=== PATIENT | female | born 1975 | race Caucasian/White ===

== ENCOUNTER 2020-07-23 07:04 | Day surgery (SDC) | payer BC ==
[~2020-07-23 07:04] MED LIST: Lactated Ringers 1,000 ML IV SCH
[2020-07-23] MEDS ORDERED: Sodium Chloride 0.9% 20 ML ONE (07:08)
[2020-07-23] MEDS ORDERED: ceFAZolin 1 GM Vial ONE (07:08)
[2020-07-23] MEDS ORDERED: Midazolam 1 MG/ML 2 ML SDV ONE (07:09)
[2020-07-23] MEDS ORDERED: Propofol 200 MG/20 ML SDV ONE (07:09)
[2020-07-23] MEDS ORDERED: fentaNYL 100 MCG/2 ML SDV ONE (07:09)
[2020-07-23] MEDS ORDERED: Ondansetron 4 MG/2 ML SDV ONE (07:09)
[2020-07-23] MEDS ORDERED: ceFAZolin 2 GM in Premix Bag 1 BAG IV SCH (08:00)
[2020-07-23] MEDS ORDERED: Scopolamine 1.5 MG Transdermal Patch TRDERM PRN (08:12)
[2020-07-23] MEDS ORDERED: Scopolamine 1.5 MG Transdermal Patch ONE (08:14)
[2020-07-23] MEDS ORDERED: Bupivacaine 25%/EPINEPHrine/PF 30 ML ONE (08:15)
[2020-07-23] MEDS ORDERED: Dexamethasone 4 MG/ML 5 ML MDV ONE (08:28)
[2020-07-23] MEDS ORDERED: fentaNYL 100 MCG/2 ML SDV IVPUSH PRN (08:46)
[2020-07-23] MEDS ORDERED: ePHEDrine 50 MG/ML SDV ONE (08:48)
[2020-07-23] MEDS ORDERED: Glycopyrrolate 0.2 MG/ML SDV ONE (08:50)
--- NOTE | 2020-07-23 08:57 | PCM.PREANE ---
Preanesthetic Assessment - Anesthesia/Transfusion/Family Hx Anesthesia History: Prior Anesthesia Reaction (PONV) Family History of Anesthesia Reaction: No Transfusion History: No Prior Transfusion(s) Intubation History: Unknown - Review of Systems General: No Symptoms Pulmonary: No Symptoms Cardiovascular: No Symptoms Gastrointestinal: No Symptoms Neurological: No Symptoms Other: Reports: None - Physical Assessment NPO Status Date: 07/22/20 NPO Status Time: 22:00 Vital Signs: Last Vital Signs Temp 97.2 F 07/23/20 08:34 Pulse 72 07/23/20 08:34 Resp 16 07/23/20 08:34 BP 134/94 H 07/23/20 08:34 Pulse Ox 99 07/23/20 08:34 Height: 5 ft 5 in Weight: 65.771 kg ASA Class: 1 Mental Status: Alert & Oriented x3 Airway Class: Mallampati = 2 Dentition: Reports: Normal Dentition Thyro-Mental Finger Breadths: 2 Mouth Opening Finger Breadths: 2 ROM/Head Extension: Full Lungs: Clear to Auscultation, Normal Respiratory Effort Cardiovascular: Regular Rate, Regular Rhythm - Lab Values: Laboratory Last Values Urine HCG, Qual NEGATIVE (NEGATIVE) 07/23/20 07:07 SARS-CoV-2 RNA (LYNDA) NEGATIVE (NEGATIVE) 07/23/20 07:07 - Allergies Allergies/Adverse Reactions: Allergies Allergy/AdvReac Type Severity Reaction Status Date / Time No Known Allergies Allergy Verified 07/23/20 08:32 - Acknowledgements Anesthesia Type Planned: General Anesthesia Pt an Appropriate Candidate for the Planned Anesthesia: Yes Alternatives and Risks of Anesthesia Discussed w Pt/Guardian: Yes Pt/Guardian Understands and Agrees with Anesthesia Plan: Yes PreAnesthesia Questionnaire HEENT History: Reports: None Cardiovascular History: Reports: None Respiratory History: Reports: None Gastrointestinal History: Reports: None Genitourinary History: Reports: None EXHAUST EMISSIONS INSPECTOR History: Reports: Musculoskeletal History: Reports: None Neurological History: Reports: None Psychiatric History: Reports: None Endocrine/Metabolic History: Reports: None Hematologic History: Reports: None Immunologic History: Reports: None Oncologic (Cancer) History: Reports: None Dermatologic History: Reports: None - Infectious Disease History Infectious Disease History: Reports: None - Past Surgical History Head Surgeries/Procedures: Reports: None HEENT Surgical History: Reports: None Cardiovascular Surgical History: Reports: None Respiratory Surgical History: Reports: None GI Surgical History: Reports: None Female Surgical History: Reports: None Endocrine Surgical History: Reports: None Neurological Surgical History: Reports: None Musculoskeletal Surgical History: Reports: Arthroscopic Knee Other Musculoskeletal Surgeries/Procedures:: left knee surgery x2 Oncologic Surgical History: Reports: None Dermatological Surgical History: Reports: None - SUBSTANCE USE Tobacco Use Status *Q: Never Tobacco User - HOME MEDS Home Medications: Home Meds . [No Known Home Meds] 07/19/20 [History] - CURRENT (IN HOUSE) MEDS Current Meds: Current Medications Fentanyl (Sublimaze) 50 mcg IVPUSH Q5M PRN PRN Reason: Pain (severe 7-10) Stop: 07/24/20 08:47 Lactated Ringer's (Ringers, Lactated) 1,000 mls @ 100 mls/hr IV ASDIRECTED EL Last Admin: 07/23/20 08:20 Dose: 100 mls/hr Documented by: Cefazolin Sodium/Dextrose 2 gm (/ Premix) 50 mls @ 100 mls/hr IV ONCALL EL Scopolamine (Transderm-Scop) 1.5 mg TRDERM Q72H PRN PRN Reason: Nausea Last Admin: 07/23/20 08:31 Dose: 1.5 mg Documented by: Discontinued Medications Cefazolin Sodium (Ancef) Confirm Administered Dose 2 gm .ROUTE .STK-MED ONE Stop: 07/23/20 07:09 Dexamethasone (Dexamethasone) Confirm Administered Dose 20 mg .ROUTE .STK-MED ONE Stop: 07/23/20 08:29 Ephedrine Sulfate (Ephedrine Sulfate) Confirm Administered Dose 50 mg .ROUTE .STK-MED ONE Stop: 07/23/20 08:49 Fentanyl (Sublimaze) Confirm Administered Dose 100 mcg .ROUTE .STK-MED ONE Stop: 07/23/20 07:10 Glycopyrrolate (Robinul) Confirm Administered Dose 0.2 mg .ROUTE .STK-MED ONE Stop: 07/23/20 08:51 Sodium Chloride (Normal Saline) Confirm Administered Dose 20 mls @ as directed .ROUTE .STK-MED ONE Stop: 07/23/20 07:09 Bupivacaine HCl/Epinephrine Bitart (Sensorc Mpf 0.25%-Epi [id number]) Confirm Administered Dose 30 mls @ as directed .ROUTE .STK-MED ONE Stop: 07/23/20 08:16 Lidocaine HCl (Xylocaine-Mpf 1%) Confirm Administered Dose 5 ml .ROUTE .[facility]-MED ONE Stop: 07/23/20 07:10 Midazolam HCl (Versed 1 Mg/Ml) Confirm Administered Dose 2 mg .ROUTE .ST-MED ONE Stop: 07/23/20 07:10 Ondansetron HCl (Zofran) Confirm Administered Dose 4 mg .ROUTE .[facility]-MED ONE Stop: 07/23/20 07:10 Propofol (Diprivan 20 Ml) Confirm Administered Dose 200 mg .ROUTE .[facility]-MED ONE Stop: 07/23/20 07:10 Scopolamine (Transderm-Scop) Confirm Administered Dose 1.5 mg .ROUTE .[facility]-MED ONE Stop: 07/23/20 08:15
[2020-07-23] MEDS ORDERED: Ketorolac 30 MG/ML SDV ONE (09:15)
--- NOTE | 2020-07-23 09:33 | PCM.OPNOTE ---
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 She has a screw post with washer in the region of the lateral epicondyle. With increased activities such as cycling, she has irritation in the lateral aspect of the knee and swelling. We discussed the risks and benefits of hardware removal. All questions were answered. Patient consented to proceed with surgery. Patient was medically clear for surgery. Patient was taken to the operating room. A tourniquet was placed on the left proximal thigh. Left lower extremities prepped and draped in usual sterile manner. The leg elevated and the tourniquet inflated. The screw head was palpable through the soft tissue and the central aspect of the previous lateral incision was opened with a scalpel. Subcutaneous tissue was incised letter cautery. The iliotibial band was split longitudinally and the screw head was identified. This was able to be removed with a hemostat because it was loose. There was surrounding synovial type fluid that also had evidence of metallosis in the fluid and surrounding tissue. The washer was removed. The tissue with metallosis was removed with the rongeur is much as possible. Wound was irrigated. The iliotibial band was closed with interrupted #1 Vicryl suture. Skin was closed with interrupted 2-0 nylon horizontal mattress sutures. A sterile dressing was applied and the patient was accompanied the recovery room in stable condition. Pain management: Ibuprofen and acetaminophen Prophylactic antibiotics: Not indicated for outpatient procedure Venous thromboembolism prophylaxis: Not indicated for outpatient procedure Restrictions: Patient is weightbearing as tolerated on her left lower extremity and has no specific restrictions. She may resume activities as tolerated. She should not soak or immerse the incision until incision is fully healed and sutures are removed.
--- NOTE | 2020-07-23 10:01 | PCM.POSTAN ---
POST ANESTHESIA ASSESSMENT - MENTAL STATUS Mental Status: Alert, Oriented - VITAL SIGNS Vital Signs: Last Vital Signs Temp 36.9 C 07/23/20 09:23 Pulse 77 07/23/20 09:38 Resp 14 07/23/20 09:38 BP 121/68 07/23/20 09:38 Pulse Ox 98 07/23/20 09:38 - RESPIRATORY Respiratory Status: Respiratory Rate WNL, Airway Patent, O2 Saturation Stable - CARDIOVASCULAR CV Status: Pulse Rate WNL, Blood Pressure Stable - GASTROINTESTINAL GI Status: No Symptoms - PAIN Pain Score: 0 - POST OP HYDRATION Hydration Status: Adequate & Stable - OBSERVATIONS Free Text/Narrative:: No anesthesia problems
--- NOTE | 2020-07-23 11:35 | PCM48HPAN ---
Post Anesthesia Note - EVALUATION WITHIN 48HRS OF ANESTHETIC Vital Signs in Normal Range: Yes Patient Participated in Evaluation: Yes Respiratory Function Stable: Yes Airway Patent: Yes Cardiovascular Function Stable: Yes Hydration Status Stable: Yes Pain Control Satisfactory: Yes Nausea and Vomiting Control Satisfactory: Yes Mental Status Recovered: Yes Vital Signs: Last Vital Signs Temp 36.7 C 07/23/20 09:45 Pulse 81 07/23/20 10:15 Resp 15 07/23/20 10:15 BP 122/57 L 07/23/20 10:15 Pulse Ox 99 07/23/20 10:15 - COMMENTS/OBSERVATIONS Free Text/Narrative:: No anesthesia problems
--- NOTE | 2020-07-23 18:00 | CR ---
INDICATION: Surgery, was left distal femoral artery and will. TECHNIQUE: Single intraoperative fluoroscopic images were obtained. Fluoroscopic time 1.6 seconds, 0.14 mGy. COMPARISON: X-ray bilateral knees 07/05/2020. FINDINGS: There is removal of the lateral screw which was previously within the lateral femoral condyle. The screw tract is present. The metallic staple which is located more superiorly within the distal femur is unchanged. IMPRESSION: Interval removal of the lateral screw. Dictated by Jovana Clarke MD @ Jul 23 2020 5:58PM Signed by Dr. Jovana Clarke @ Jul 23 2020 5:58PM
== END 2020-07-23 10:50 | disposition home or self-care (01) ==
LOC: MW.SDS 07:04
PROVIDERS: ATTEND Orthopaedic Surgery
DX: T84.54XA Infection and inflammatory reaction due to internal left knee prosthesis, initial encounter (principal); M25.562 Pain in left knee; Z01.812 Encounter for preprocedural laboratory examination; Z20.822 Contact with and (suspected) exposure to COVID-19; Z91.09 Other allergy status, other than to drugs and biological substances; Z87.828 Personal history of other (healed) physical injury and trauma; Z98.890 Other specified postprocedural states; T84.127A Displacement of internal fixation device of bone of left lower leg, initial encounter
CPT/HCPCS: 20680; 76000; 81025; 87635; 88300; 88304; A9270; J0690; J1100; J1885; J2250; J2405; J2704; J3490; J7120; 01480; J3010; U0002